=== PATIENT | male | born 1955 | race Caucasian/White ===

== ENCOUNTER → 2017-03-29 | Outpatient (CLI) | payer OTHER ==
[~2017-03-29] MED LIST: ABILIFY PO; ALLOPURINOL300 MG PO; AMARYL PO; AMITRYPTYLINE PO; ASPIRIN81 M2 PO; BIAXIN PO; CIPRO PO; COMBIVENT14.7 GM INH; COREG PO; COREG12.5 MG PO; COREG6.25 MG PO; COUMADIN5 MG PO; COZAAR25 MG PO; CRESTOR PO; CRESTOR10 MG PO; DIAZEPAM PO; DIFLUCAN PO; EFFIENT10 MG PO; FISH OIL 1,0001 CAP PO; FLAGYL PO; FLEXERIL10 MG PO; FLOMAX0.4 M1; FLOMAX0.4 M1 PO; FLOMAX0.4 MG PO; GLUCOPHAGE500 MG PO; GLYBURIDE-METFO1 TA3 PO; GLYBURIDE-METFO1 TA4 PO; GLYNASE PO; HYDROCODON-ACE1 EAC7 PO; KLONOPIN PO; KLONOPIN1 MG PO; LEXAPRO PO; LEXAPRO20 MG PO; LIPITOR PO; LORTAB ELIXIR15 ML PO; LOVENOX80 MG/0.8 INJ; MAG-OXIDE400 MG PO; METFORMIN HCL500 M1 PO; METFORMIN PO; MIRACLE MOUTHWASH; MORPHINE SULFAT10 M1 PO; NEURONTIN PO; NEURONTIN300 MG PO; NEXIUM PO; NITROGLYGERIN0.4 MG SL; PHENERGAN25 M1; PHENERGAN25 MG PO; PRILOSEC PO; PROTONIX PO; REGLAN10 MG PO; RISPERIDONE0.5 MG PO; ROBITUSSIN A-C S5 ML DOB; SEROQUEL PO; SEROQUEL25 MG PO; SEROQUEL300 M1 PO; ULTRAM PO; WELLBUTRIN PO; ZETIA PO; ZOFRAN ODT4 MG PO; ZYLOPRIM PO; [UNRECOGNIZED DRUG - REMARK]
--- NOTE | ~2017-03-29 | CT57 ---
[facility] A Service of [facility] [place] RADIOLOGY TEXT RESULTS PATIENT: MARY JO DENTON LOCATION: [facility] : 53 UNIT #: [id number] AGE: [address]: MAYTE GUTIERREZ SEX: M ORDER DR: [id number] [facility] [address] [facility]. [place], [place] [address] [id number] O MR#: [id number] Acc #: [id number] NAME: MARY JO DENTON : 1955 SEX: M STUDY DATE/TIME: 03/29/2017 9:23 UNIT: [facility] ROOM: STUDY DESCRIPTION: CT Chest Wo Cont Attending Physician: Mayte Gutierrez Aprn Referring Physician: Mayte Gutierrez Aprn Primary Care Physician: Nara Hamilton M.D. MEDICAL IMAGING REPORT This report is preliminary unless electronic signature is present EXAM CT of the chest with contrast HISTORY Shortness of breath on exertion for the past 3 weeks. Patient has history of neck cancer. TECHNIQUE Axial CT images were obtained from the thoracic inlet through the dome of the diaphragm and intravenous contrast material was administered. This CT exam was performed with one or more of the following radiation dose reduction techniques: automatic exposure control, adjustment of mA and/or kV according to patient size, and iterative reconstruction. FINDINGS Patient has background of some background emphysematous changes. There is a subpleural nodule seen within the right lower lobe measuring up to 6 mm in size, was not clearly seen on the prior exam from 2012. It is located within the right lower lobe. No additional noncalcified pulmonary nodules or masses are seen. The thyroid gland, trachea and esophagus appear unremarkable. There is no pleural or pericardial effusion. There are coronary artery calcifications. Mediastinal lymph nodes do not appear pathologically enlarged. No acute abnormalities are seen within the upper abdomen. Review of bony windows demonstrates compression deformity at T12, unchanged when compared to the prior study. No acute abnormalities are seen within the upper abdomen. IMPRESSION [facility] A Service of [facility] [place] RADIOLOGY TEXT RESULTS PATIENT: MARY JO DENTON LOCATION: [facility] : 53 UNIT #: [id number] AGE: [address]: MAYTE GUTIERREZ SEX: M ORDER DR: 1. This patient has a 6 mm nodule identified within the right lower lobe which was not clearly identified on the prior study. I do suspect it is probably benign. I would suggest short-term CT followup in 6 months to document continuing stability. 2. Coronary artery calcifications. 3. Please see the body of the report for any other additional incidental findings. Dictated by... Shivani Mckoy M.D. THIS IS AN ELECTRONICALLY VERIFIED REPORT Shivani Mckoy M.D. at 03/30/2017 5:02 PM AFF/pcl TD: 03/29/2017 18:15 JOB #: [id number] MEDICAL IMAGING REPORT Page 1 of 1 COPY
== END | disposition home or self-care (01) ==
LOC: CCAT 09:03
DX: R06.02 Shortness of breath (principal); R76.0 Raised antibody titer; R91.1 Solitary pulmonary nodule; I25.10 Atherosclerotic heart disease of native coronary artery without angina pectoris
CPT/HCPCS: 71250